=== PATIENT | male | born 1945 | race Caucasian/White ===

== ENCOUNTER 2020-08-09 08:46 | Emergency (ER) | payer MEDICARE ==
[~2020-08-09] VITALS: Ht 175.3 cm; Wt 81.9 kg
[~2020-08-09 08:46] MED LIST: ASPI1CPM9 PO; ATOR80TA PO; LEVO137T2 PO; LISINOPRIL PO
[2020-08-09 08:47] VITALS: BP 105/66
== END 2020-08-09 10:43 | disposition home or self-care (01) ==
LOC: ED 09:53
DX: S90.31XA Contusion of right foot, initial encounter (principal); R60.0 Localized edema; M79.89 Other specified soft tissue disorders; I10 Essential (primary) hypertension; E78.5 Hyperlipidemia, unspecified; E03.9 Hypothyroidism, unspecified; X58.XXXA Exposure to other specified factors, initial encounter; Y93.89 Activity, other specified; Y92.098 Other place in other non-institutional residence as the place of occurrence of the external cause; Y99.8 Other external cause status
CPT/HCPCS: 99284